=== PATIENT | female | born 1975 | race Hispanic/Latino ===

== ENCOUNTER 2018-11-15 05:51 | Emergency (ER) | payer SELFPAY ==
[2018-11-15] MEDS ORDERED: NA CHLORIDE 0.9% 1,000 ML ONE (06:35)
[2018-11-15 06:48] LABS: Absolute Lymphocytes (CBC) 1.5 K/uL (0.7-4.9); Absolute Monocytes 0.4 K/uL (0.1-1.3); Absolute Neutrophil 4.8 K/uL (1.8-8.0); Basophils % 0.5 % (0-1.3); Eosinophils % 1.8 % (0-4.4); Hematocrit 38.4 % (36.0-45.0); Lymphocytes % 21.8 % (15.3-44.8); MPV 8.7 fL (7.6-11.3); Monocytes % 6.3 % (3.3-12.3); RBC Red Blood Cell Count 4.86 M/uL (3.86-4.86)
[2018-11-15] MEDS ORDERED: KETOROLAC 30 MG/ML INJ ONE (06:56)
[2018-11-15 06:57] LABS: Urine Bacteria 20-50 /HPF (<20); Urine Culture Reflex Order REFLEXED; Urine RBC 20-50 /HPF (NONE SEEN)
[2018-11-15 07:01] LABS: ALT/SGPT 16 U/L (12-78); AST/SGOT 10 U/L (15-37); Albumin 3.5 g/dL (3.4-5.0); Alkaline Phosphatase 59 U/L (45-117); BUN Blood Urea Nitrogen 13 mg/dL (7-18); Bicarbonate 24 mmol/L (21-32); Bilirubin Direct < 0.1 mg/dL (0-0.2); Bilirubin Total 0.3 mg/dL (0.2-1.0); Glucose Level 109 mg/dL (74-106); Lipase 167 U/L (73-393); Potassium 3.7 mmol/L (3.5-5.1); Protein, Total 7.4 g/dL (6.4-8.2); Sodium Level 139 mmol/L (136-145)
--- NOTE | 2018-11-15 07:21 | RAD REPORT ---
EXAM DESCRIPTION: CT - Stone Protocol - 11/15/2018 7:06 am CLINICAL HISTORY: Abdominal pain. Hematuria COMPARISON: None. TECHNIQUE: Computed axial tomography of the abdomen pelvis was obtained without oral or IV contrast. Lack of IV and oral contrast limits evaluation of solid organs, bowel, and vessels. Coronal reformat ruth ann images were obtained and reviewed. All CT scans are performed using dose optimization technique as appropriate and may include automated exposure control or mA/KV adjustment according to patient size. FINDINGS: A renal calculus is not seen. Mild left hydronephrosis. 3 millimeter calculus left uretera l vesicle junction The liver, spleen, pancreas and adrenals appear grossly normal There is no evidence of diverticulitis. The appendix appears normal Small umbilical hernia. 25 millimeter right ovarian cyst without significant free fluid Borderline gallbladder distention IMPRESSION: 3 millimeter calculus left ureterovesical junction with mild left hydronephrosis
[2018-11-15] MEDS ORDERED: TAMSULOSIN 0.4 MG SR CAP ONE (07:41)
[2018-11-15] MEDS ORDERED: CEFTRIAXONE/SWI 1gm 1 GM/10 ML SYR ONE (07:42)
[2018-11-15] MEDS ORDERED: MAGNESIUM SULFATE 1 gm IVPB 1 GM/100 ML BAG IV ONE (07:42)
--- NOTE | 2018-11-15 07:48 | ER ---
Nurse's Notes [facility] Name: Josie Lewis Age: 43 yrs Sex: Female : 1975 Arrival Date: 11/15/2018 Time: 05:52 Bed 13 Private MD: Diagnosis: Calculus of ureter-Left Presentation: 11/15 05:53 Presenting complaint: Patient states: I have not been able to urinate or have a bowel jb4 movement since yesterday. and when I try to urinate only a little comes out and has blood in it. I am having lower abdominal pain that radiates to my lower back. Transition of care: patient was not received from another setting of care. Onset of symptoms was November 14, 2018. Risk Assessment: Do you want to hurt yourself or someone else? Patient reports no desire to harm self or others. Initial Sepsis Screen: Does the patient meet any 2 criteria? No. Patient's initial sepsis screen is negative. Does the patient have a suspected source of infection? No. Patient's initial sepsis screen is negative. 05:53 Method Of Arrival: Ambulatory jb4 05:53 Acuity: STONEY 3 jb4 05:53 Care prior to arrival: None. jb4 Triage Assessment: 05:53 General: Appears in no apparent distress. uncomfortable, Behavior is calm, cooperative, jb4 appropriate for age. Pain: Complains of pain in left lower quadrant Pain radiates to left low back Pain currently is 9 out of 10 on a pain scale. Quality of pain is described as "It's just a constant pain.". EENT: Neuro: Level of Consciousness is awake, alert, obeys commands, Oriented to person, place, time, situation. Cardiovascular: Patient's skin is warm and dry. Respiratory: Airway is patent Respiratory effort is even, unlabored, Respiratory pattern is regular, symmetrical. GI: Abdomen is non-distended, obese, Bowel sounds present X 4 quads. Abd is soft X 4 quads Abd is non tender in right upper quadrant and right lower quadrant Abdomen is tender to palpation in left upper quadrant and left lower quadrant. : Reports inability to void, pain in left lower quadrant(s) in lower back with urination, urgency, urinary frequency. Derm: Skin is intact, Skin is pink, warm \\T\\ dry. Musculoskeletal: Circulation, motion, and sensation intact. 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 - Social history:: Smoking status: Patient/guardian denies using tobacco, Patient/guardian denies using alcohol. - Ebola Screening: : No symptoms or risks identified at this time. Screenin:53 Abuse screen: Denies threats or abuse. Nutritional screening: No deficits noted. jb4 Tuberculosis screening: No symptoms or risk factors identified. Fall Risk None identified. Assessment: 05:53 General: see triage assessment.. jb4 07:14 General: Appears in no apparent distress. comfortable, Behavior is calm, cooperative. em Pain: Complains of pain in left lower quadrant Pain radiates to left low back. Neuro: Level of Consciousness is awake, alert, obeys commands, Oriented to person, place, time, situation. Cardiovascular: Patient's skin is warm and dry. Respiratory: Airway is patent Respiratory effort is even, unlabored, Respiratory pattern is regular, symmetrical. : Reports burning with urination. Derm: Skin is intact, is healthy with good turgor, Skin is pink, warm \\T\\ dry. Musculoskeletal: Range of motion: intact in all extremities. 08:00 Reassessment: Patient appears in no apparent distress at this time. Patient and/or em family updated on plan of care and expected duration. Pain level reassessed. Patient is alert, oriented x 3, equal unlabored respirations, skin warm/dry/pink. pending completion of IV magnesium. 08:50 Reassessment: Patient and/or family updated on plan of care and expected duration. Pain em level reassessed. Patient is alert, oriented x 3, equal unlabored respirations, skin warm/dry/pink. pt request something for pain, rates 4/10, provider notified, new medication orders received Patient denies pain at this time. Patient states feeling better. Vital Signs: 05:53 BP 143 / 68; Pulse 74; Resp 16; Temp 98.4(O); Pulse Ox 100% on R/A; Weight 72.57 kg jb4 (R); Height 5 ft. 6 in. (167.64 cm) (R); Pain 9/10; 07:14 BP 141 / 82; Pulse 59; Resp 16; Pulse Ox 99% on R/A; Pain 4/10; em 08:00 BP 121 / 72; Pulse 61; Resp 18; Pulse Ox 99% on R/A; Pain 0/10; em 05:53 Body Mass Index 25.82 (72.57 kg, 167.64 cm) jb4 ED Course: 05:52 Patient arrived in ED. al2 05:53 Arm band placed on left wrist. jb4 05:53 Patient has correct armband on for positive identification. Placed in gown. Bed in low jb4 position. Call light in reach. Side rails up X 1. Pulse ox on. NIBP on. 06:09 Noe Benedict, RN is Primary Nurse. jb4 06:11 Triage completed. jb4 06:19 Power Slater PA is PHCP. cp 06:19 Jacky Dang MD is Attending Physician. cp 07:[address] via wheelchair. kw1 07:06 CT Stone Protocol In Process Unspecified. EDMS 07:46 Pat Walker MD is Referral Physician. cp 09:01 No provider procedures requiring assistance completed. IV discontinued, intact, em bleeding controlled, No redness/swelling at site. Pressure dressing applied. 09:05 Primary Nurse role handed off by Noe Benedict, RN em Administered Medications: 06:30 Drug: NS 0.9% 1000 ml Route: IV; Rate: 1 bolus; Site: right antecubital; jb4 09:07 Follow up: IV Status: Completed infusion; IV Intake: 1000ml em 06:49 Drug: TORadol 30 mg Route: IVP; Site: right antecubital; jb4 07:29 Follow up: Response: No adverse reaction; Pain is decreased em 07:50 Drug: Magnesium Sulfate 1 grams Route: IVPB; Infused Over: 1 hrs; Site: right em antecubital; 09:06 Follow up: IV Status: Completed infusion em 07:50 Drug: Flomax 0.4 mg Route: PO; em 09:06 Follow up: Response: No adverse reaction em 07:51 Drug: Rocephin 1 grams Route: IV; Rate: bolus; Site: right antecubital; la1 : Follow up: Response: No adverse reaction; IV Status: Completed infusion; IV Intake: 10mlem : Drug: [place] 5 mg-325 mg 1 tabs Route: PO; em : Follow up: Response: Medication administered at discharge. em Intake: : IV: 10ml; Total: 10ml. em : IV: 1000ml; Total: 1010ml. em Outcome: 07:47 Discharge ordered by MD. cp : Discharged to home ambulatory, with family. em : Condition: good 09:02 Discharge instructions given to patient, family, Instructed on discharge instructions, follow up and referral plans. no drinking with medication, no driving heavy equipment, medication usage, Demonstrated understanding of instructions, follow-up care, medications, Prescriptions given X 4. 09:04 Patient left the ED. em 09:07 Patient left the ED. em Signatures: Dispatcher [employer] EDNY Colton Lynne, RUBBER GOODS SUPERVISOR RUBBER GOODS SUPERVISOR em Alexei Yun RN RN la1 Power Slater PA PA cp Bryson, James, RN RN jb4 Leann Dill1 [place] Lynn
--- NOTE | 2018-11-15 07:48 | EDPHYS ---
Physician Documentation [facility] Name: Josie Lewis Age: 43 yrs Sex: Female : 1975 Arrival Date: 11/15/2018 Time: 05:52 Bed 13 Private MD: ED Physician Jacky Dang HPI: 11/15 06:25 This 43 yrs old Female presents to ER via Ambulatory with complaints of Abdominal Pain, cp Back Pain. 06:25 The patient presents with abdominal pain in the left lower quadrant. The symptoms cp radiate to left back. 06:25 Onset: The symptoms/episode began/occurred yesterday. Associated signs and symptoms: cp Pertinent positives: constipation, diarrhea, hematuria, Pertinent negatives: anorexia, blood in stools, diarrhea, fever, headache, vaginal discharge, vomiting. 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 - Social history:: Smoking status: Patient/guardian denies using tobacco, Patient/guardian denies using alcohol. - Ebola Screening: : No symptoms or risks identified at this time. ROS: 06:30 Constitutional: Negative for body aches, chills, fever, poor PO intake. cp 06:30 Eyes: Negative for injury, pain, redness, and discharge. cp 06:30 Cardiovascular: Negative for chest pain, edema, palpitations. cp 06:30 Neck: Negative for pain with movement, pain at rest, stiffness. cp 06:30 Respiratory: Negative for cough, shortness of breath, wheezing. 06:30 Abdomen/GI: Positive for abdominal pain, nausea, Negative for vomiting, diarrhea, constipation, anorexia, black/tarry stool, rectal bleeding. 06:30 Back: Positive for radiated pain. 06:30 : Positive for urinary frequency, small amounts, Negative for bladder incontinence, vaginal bleeding, vaginal discharge. 06:30 Skin: Negative for cellulitis, rash. 06:30 Neuro: Negative for altered mental status, headache, weakness. 06:30 All other systems are negative. Exam: 06:35 Constitutional: The patient appears in no acute distress, alert, awake, cp non-diaphoretic, non-toxic, well developed, well nourished. 06:35 Head/Face: Normocephalic, atraumatic. cp 06:35 Eyes: Periorbital structures: appear normal, Pupils: equal, round, and reactive to cp light and accomodation, Extraocular movements: intact throughout, Conjunctiva: normal, no exudate, no injection, Sclera: no appreciated abnormality, Lids and lashes: appear normal, bilaterally. 06:35 ENT: External ear(s): are unremarkable, Nose: is normal, Mouth: Lips: moist, Oral mucosa: pink and intact, moist, Posterior pharynx: is normal, airway is patent, no erythema, no exudate, Voice: is normal. 06:35 Neck: ROM/movement: is normal, is supple, without pain, no range of motions limitations, no nuchal rigidity. 06:35 Chest/axilla: Inspection: normal, Palpation: is normal, no crepitus, no tenderness. 06:35 Cardiovascular: Rate: normal, Rhythm: regular, Edema: is not appreciated, JVD: is not appreciated. 06:35 Respiratory: the patient does not display signs of respiratory distress, Respirations: normal, no use of accessory muscles, no retractions, no splinting, no tachypnea, labored breathing, is not present, Breath sounds: are clear throughout, no decreased breath sounds, no stridor, no wheezing. 06:35 Abdomen/GI: Inspection: abdomen appears normal, Bowel sounds: active, all quadrants, Palpation: soft, in all quadrants, moderate abdominal tenderness, in the left lower quadrant, rebound tenderness, is not appreciated, voluntary guarding, is not appreciated, involuntary guarding, is not appreciated. 06:35 Back: CVA tenderness, is absent. 06:35 Skin: cellulitis, is not appreciated, no rash present. Vital Signs: 05:53 BP 143 / 68; Pulse 74; Resp 16; Temp 98.4(O); Pulse Ox 100% on R/A; Weight 72.57 kg jb4 (R); Height 5 ft. 6 in. (167.64 cm) (R); Pain 9/10; 07:14 BP 141 / 82; Pulse 59; Resp 16; Pulse Ox 99% on R/A; Pain 4/10; em 08:00 BP 121 / 72; Pulse 61; Resp 18; Pulse Ox 99% on R/A; Pain 0/10; em 05:53 Body Mass Index 25.82 (72.57 kg, 167.64 cm) jb4 MDM: 06:20 Patient medically screened. cp 07:00 Differential diagnosis: appendicitis, bowel obstruction, cholecystitis, Cholelithiasis, cp diverticulitis, gastritis, pancreatitis, Pyelonephritis, Ureterolithiasis, urinary tract infection. 07:46 Data reviewed: vital signs, nurses notes, lab test result(s), radiologic studies, CT cp scan. 07:46 Counseling: I had a detailed discussion with the patient and/or guardian regarding: the cp historical points, exam findings, and any diagnostic results supporting the discharge/admit diagnosis, lab results, radiology results, to return to the emergency department if symptoms worsen or persist or if there are any questions or concerns that arise at home. Response to treatment: the patient's symptoms have markedly improved after treatment, VSS. Pain markedly improved. Will discharge to home for continued monitoring. 11/15 06:20 Order name: Basic Metabolic Panel; Complete Time: 07:20 11/15 07:20 Interpretation: Normal except: CL 108; GLUC 109. 11/15 06:20 Order name: CBC with Diff; Complete Time: 07:20 11/15 07:20 Interpretation: Normal except: MCV 79.0; MCH 26.0; RDW 15.5. 11/15 06:20 Order name: Creatinine for Radiology; Complete Time: 07:20 11/15 06:20 Order name: Hepatic Function; Complete Time: 07:20 11/15 06:20 Order name: Lipase; Complete Time: 07:20 11/15 06:20 Order name: Urine Microscopic Only; Complete Time: 07:20 11/15 07:20 Interpretation: Normal except: URBC 20-50; UBACT 20-50; SQEPI 5-10. 11/15 06:45 Order name: CT Stone Protocol; Complete Time: 07:27 11/15 06:58 Order name: Urine Culture EDTN 11/15 06:59 Order name: Urine Dipstick--Ancillary (enter results) 11/15 06:59 Order name: Urine --Ancillary (enter results) eb 11/15 06:20 Order name: IV Saline Lock; Complete Time: 06:44 cp 11/15 06:20 Order name: Labs collected and sent; Complete Time: 06:44 cp 11/15 06:20 Order name: Urine Dipstick-Ancillary (obtain specimen); Complete Time: 06:44 cp 11/15 06:20 Order name: Urine Test (obtain specimen); Complete Time: 06:44 cp 11/15 07:31 Order name: PO challenge; Complete Time: 07:50 cp Administered Medications: 06:30 Drug: NS 0.9% 1000 ml Route: IV; Rate: 1 bolus; Site: right antecubital; jb4 09:07 Follow up: IV Status: Completed infusion; IV Intake: 1000ml em 06:49 Drug: TORadol 30 mg Route: IVP; Site: right antecubital; jb4 07:29 Follow up: Response: No adverse reaction; Pain is decreased em 07:50 Drug: Magnesium Sulfate 1 grams Route: IVPB; Infused Over: 1 hrs; Site: right em antecubital; 09:06 Follow up: IV Status: Completed infusion em 07:50 Drug: Flomax 0.4 mg Route: PO; em 09:06 Follow up: Response: No adverse reaction em 07:51 Drug: Rocephin 1 grams Route: IV; Rate: bolus; Site: right antecubital; la1 09:06 Follow up: Response: No adverse reaction; IV Status: Completed infusion; IV Intake: 10mlem 09:06 Drug: [place] 5 mg-325 mg 1 tabs Route: PO; em 09:06 Follow up: Response: Medication administered at discharge. em Disposition: 11/15/18 07:47 Discharged to Home. Impression: Calculus of ureter - Left. - Condition is Stable. - Discharge Instructions: Kidney Stones, Renal Colic. - Prescriptions for Tylenol- Codeine #3 300-30 mg Oral Tablet - take 2 tablets by ORAL route every 6 hours As needed; 20 tablet. Zofran 4 mg Oral Tablet - take 1 tablet by ORAL route every 12 hours As needed; 20 tablet. Flomax 0.4 mg Oral Capsule, Sust. Release 24 hr - take 1 capsule by ORAL route once daily 1/2 hour following the same meal each day; 5 capsule. Cipro 500 mg Oral Tablet - take 1 tablet by ORAL route every 12 hours for 7 days; 14 tablet. - Medication Reconciliation Form, Thank You Letter, Antibiotic Education, Prescription Opioid Use form. - Follow up: Pat Walker MD; When: 1 - 2 days; Reason: symptoms continue. - Problem is new. - Symptoms have improved. Signatures: Dispatcher [employer] EDMS Maged, Col[place], NEEDLE PROCESS FELT GOODS SUPERVISOR NEEDLE PROCESS FELT GOODS SUPERVISOR em Alexei Ynu RN RN la1 Power Slater PA PA Noe Li, RN RN jb4 Corrections: (The following items were deleted from the chart) 07:41 06:25 Associated signs and symptoms: Pertinent positives: dysuria, Pertinent negatives: cp constipation, diarrhea, fever, vaginal discharge, vomiting, cp 09:04 07:47 11/15/2018 07:47 Discharged to Home. Impression: Calculus of ureter - Left. em Condition is Stable. Forms are Medication Reconciliation Form, Thank You Letter, Antibiotic Education, Prescription Opioid Use. Follow up: Pat Walker; When: 1 - 2 days; Reason: symptoms continue. Problem is new. Symptoms have improved. cp 09:07 09:04 11/15/2018 07:47 Discharged to Home. Impression: Calculus of ureter - Left. em Condition is Stable. Discharge Instructions: Kidney Stones, Renal Colic. Prescriptions for Tylenol-Codeine #3 300-30 mg Oral Tablet - take 2 tablets by ORAL route every 6 hours As needed; 20 tablet, Zofran 4 mg Oral Tablet - take 1 tablet by ORAL route every 12 hours As needed; 20 tablet, Flomax 0.4 mg Oral Capsule, Sust. Release 24 hr - take 1 capsule by ORAL route once daily 1/2 hour following the same meal each day; 5 capsule, Cipro 500 mg Oral Tablet - take 1 tablet by ORAL route every 12 hours for 7 days; 14 tablet. and Forms are Medication Reconciliation Form, Thank You Letter, Antibiotic Education, Prescription Opioid Use. Follow up: Pat Walker; When: 1 - 2 days; Reason: symptoms continue. Problem is new. Symptoms have improved. em
[2018-11-15] MEDS ORDERED: HYDROCODONE/APAP 5/325 MG TAB ONE (09:02)
[2018-11-15 09:06] LABS: Urine Blood 2+ (NEG); Urine Glucose NEGATIVE (NEG); Urine Protein NEGATIVE (NEG); Urine pH 5.5 (5.0-7.0)
== END 2018-11-15 09:07 | disposition home or self-care (01) ==
LOC: ER 05:51
DX: N20.1 Calculus of ureter (principal)
CPT/HCPCS: 36415; 74176; 76377; 80048; 80076; 81003; 81015; 81025; 83690; 85025; 87086; 87088; 96361; 96365; 96368; 96375; 99284; J0696; J3475; J7030

== ENCOUNTER 2019-07-21 12:11 | Emergency (ER) | payer SELFPAY ==
[2019-07-21] MEDS ORDERED: ASPIRIN 81 MG CHEWABLE TABLET ONE (12:37)
[2019-07-21] MEDS ORDERED: NITROGLYCERIN 0.4 MG/TAB SL ONE (12:37)
[2019-07-21 12:55] LABS: Absolute Lymphocytes (CBC) 1.7 K/uL (0.7-4.9); Basophils % 0.3 % (0-1.3); Hematocrit 34.7 % (36.0-45.0); Lymphocytes % 27.1 % (15.3-44.8); MPV 8.7 fL (7.6-11.3); RBC Red Blood Cell Count 4.69 M/uL (3.86-4.86)
[2019-07-21 12:57] LABS: Protime INR 1.06
--- NOTE | 2019-07-21 12:59 | RAD REPORT ---
EXAM DESCRIPTION: Kelsi Single View07/21/2019 12:50 pm CLINICAL HISTORY: Chest pain COMPARISON: 2016 FINDINGS: The lungs appear clear of acute infiltrate. The heart is upper limits normal size IMPRESSION: No acute abnormalities displayed
[2019-07-21 13:18] LABS: ALT/SGPT 14 U/L (12-78); AST/SGOT 11 U/L (15-37); Albumin 3.4 g/dL (3.4-5.0); Alkaline Phosphatase 62 U/L (45-117); BUN Blood Urea Nitrogen 9 mg/dL (7-18); Bicarbonate 25 mmol/L (21-32); Bilirubin Direct < 0.1 mg/dL (0-0.2); Bilirubin Total 0.3 mg/dL (0.2-1.0); Glucose Level 97 mg/dL (74-106); NT PRO-BNP 55 pg/mL (<125); Potassium 3.5 mmol/L (3.5-5.1); Protein, Total 7.1 g/dL (6.4-8.2); Sodium Level 140 mmol/L (136-145); Troponin (Emerg Dept Use Only) < 0.02 ng/mL (0.0-0.045)
[2019-07-21] MEDS ORDERED: MECLIZINE HCL 12.5 MG TAB ONE (13:50)
--- NOTE | 2019-07-21 14:27 | RAD REPORT ---
EXAM DESCRIPTION: CT - Head Brain Wo Cont - 07/21/2019 2:20 pm CLINICAL HISTORY: DIZZINESS Headache, drowsiness COMPARISON: No comparisons TECHNIQUE: All CT scans are performed using dose optimization technique as appropriate and may inclu de automated exposure control or mA/KV adjustment according to patient size. FINDINGS: No intracranial hemorrhage, hydrocephalus or extra-axial fluid collection.No areas of brai n edema or evidence of midline shift. The paranasal sinuses and mastoids are clear. The calvarium is intact. IMPRESSION: No acute intracranial abnormality.
--- NOTE | 2019-07-21 14:40 | ER ---
Nurse's Notes [facility] Name: Josie Nugent Age: 44 yrs Sex: Female : 1975 Arrival Date: 07/21/2019 Time: 12:13 Bed 25 Private MD: Diagnosis: Chest pain, unspecified;Dizziness and giddiness Presentation: 07/21 12:14 Presenting complaint: EMS states: pt is American speaking only and all I got is she is ca1 having chest pain on the left side that goes to the L arm which started last night. BP 173/105, HR 120. Pt also reports she is under a lot of stress. Transition of care: patient was not received from another setting of care. Onset of symptoms was July 21, 2019. Risk Assessment: Do you want to hurt yourself or someone else? Patient reports no desire to harm self or others. Initial Sepsis Screen: Does the patient meet any 2 criteria? No. Patient's initial sepsis screen is negative. Does the patient have a suspected source of infection? No. Patient's initial sepsis screen is negative. Care prior to arrival: IV initiated. 20 GA, in the right antecubital area. 12:14 Method Of Arrival: EMS: [facility] ca1 12:14 Acuity: STONEY 3 ca1 Triage Assessment: 12:19 General: Appears in no apparent distress. comfortable, Behavior is calm, cooperative, ca1 appropriate for age. Pain: Complains of pain in chest Pain radiates to left arm Pain currently is 8 out of 10 on a pain scale. Quality of pain is described as sharp, Pain began last night. Cardiovascular: Heart tones S1 S2 present Capillary refill < 3 seconds Patient's skin is warm and dry. Pulses are all present. Rhythm is sinus rhythm. 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 - Social history:: Smoking status: Patient/guardian denies using tobacco. - Ebola Screening: : Patient negative for fever greater than or equal to 101.5 degrees Fahrenheit, and additional compatible Ebola Virus Disease symptoms Patient denies exposure to infectious person Patient denies travel to an Ebola-affected area in the 21 days before illness onset No symptoms or risks identified at this time. Screenin:22 Abuse screen: Denies threats or abuse. Denies injuries from another. Nutritional ca1 screening: No deficits noted. Tuberculosis screening: No symptoms or risk factors identified. Fall Risk IV access (20 points). Assessment: 12:22 General: Appears in no apparent distress. comfortable, Behavior is calm, cooperative, ca1 appropriate for age. Pain: Complains of pain in chest Pain radiates to left arm Pain currently is 8 out of 10 on a pain scale. Quality of pain is described as sharp, Pain began last night Is intermittent. Neuro: Level of Consciousness is awake, alert, obeys commands, Oriented to person, place, time, situation, Reports dizziness. Cardiovascular: Heart tones S1 S2 present Capillary refill < 3 seconds Patient's skin is warm and dry. Pulses are all present. Rhythm is sinus rhythm. Respiratory: Airway is patent Respiratory effort is even, unlabored, Respiratory pattern is regular, symmetrical, Breath sounds are clear bilaterally. GI: Abdomen is flat, non-distended, Bowel sounds present X 4 quads. Abd is soft and non tender X 4 quads. Reports nausea. : No deficits noted. No signs and/or symptoms were reported regarding the genitourinary system. EENT: No deficits noted. No signs and/or symptoms were reported regarding the EENT system. Derm: Skin is intact, is healthy with good turgor, Skin is pink, warm \T\ dry. Musculoskeletal: Circulation, motion, and sensation intact. Capillary refill < 3 seconds, Range of motion: intact in all extremities. 13:24 Reassessment: Patient appears in no apparent distress at this time. Patient and/or ca1 family updated on plan of care and expected duration. Pain level reassessed. Patient is alert, oriented x 3, equal unlabored respirations, skin warm/dry/pink. 14:50 Reassessment: Patient appears in no apparent distress at this time. Patient is alert, ca1 oriented x 3, equal unlabored respirations, skin warm/dry/pink. Patient states feeling better. Vital Signs: 12:19 BP 150 / 89; Pulse 76; Resp 14 S; Temp 98.6(O); Pulse Ox 100% on R/A; Weight 80.74 kg ca1 (R); Height 5 ft. 2 in. (157.48 cm) (R); Pain 8/10; 13:04 BP 126 / 73; Pulse 71; Resp 17; Pulse Ox 100% on R/A; tw2 13:24 BP 111 / 72; Pulse 66; Resp 16 S; Pulse Ox 100% on R/A; ca1 14:50 BP 122 / 88; Pulse 69; Resp 18 S; Pulse Ox 100% on R/A; ca1 12:19 Body Mass Index 32.56 (80.74 kg, 157.48 cm) ca1 ED Course: 12:13 Patient arrived in ED. bd 12:14 Sommer Kay, JAEL is Primary Nurse. ca1 12:18 Triage completed. ca1 12:19 Arm band placed on right wrist. EKG completed in triage. Results shown to MD. ca1 12:22 Patient has correct armband on for positive identification. Placed in gown. Bed in low ca1 position. Call light in reach. Side rails up X 1. environmental monitoring specialist on. Pulse ox on. NIBP on. Warm blanket given. 12:22 No provider procedures requiring assistance completed. Maintain EMS IV. Dressing ca1 intact. Good blood return noted. Site clean \T\ dry. Gauge \T\ site: G20 RAC. Patient maintains SpO2 saturation greater than 95% on room air. 12:24 Isaac Calixto PA is PHCP. jr8 12:24 Jackson Mcmahan MD is Attending Physician. jr8 12:27 EKG done, by environmental services floor tech. reviewed by Jackson Mcmahan MD. sm3 12:46 Initial lab(s) drawn, by ED staff, sent to lab. jp3 12:48 X-ray completed. Portable x-ray completed in exam room. Patient tolerated procedure jb2 well. 12:50 XRAY Chest (1 view) In Process Unspecified. EDMS 14:25 CT Head Brain wo Cont In Process Unspecified. EDMS 14:38 Shiraz Her MD is Referral Physician. jr8 14:38 Marco Antonio Alvarado MD is Referral Physician. jr8 14:51 IV discontinued, intact, bleeding controlled, No redness/swelling at site. Pressure ca1 dressing applied. Administered Medications: 12:41 Drug: Aspirin Chewable Tablet 324 mg Route: PO; ca1 13:24 Follow up: Response: No adverse reaction; Pain is decreased ca1 12:44 Drug: Nitroglycerin 0.4 mg Route: Sublingual; ca1 13:24 Follow up: Response: No adverse reaction; Pain is decreased ca1 13:51 Drug: Meclizine 25 mg Route: PO; ca1 Outcome: 14:38 Discharge ordered by MD. peng 14:51 Discharged to home ambulatory, with family. ca1 14:51 Condition: stable 14:51 Discharge instructions given to patient, family, Instructed on discharge instructions, follow up and referral plans. medication usage, Demonstrated understanding of instructions, follow-up care, medications, Prescriptions given X 2. 14:51 Patient left the ED. ca1 Signatures: Dispatcher [employer] EDMS Jacqueline Doshi Jesse jb2 Roszak, Josh, PA PA jr8 Domenica Garcia, RN RN tw2 Britta Pastrana 3 Zain Christopher jp3 Sommer Kay RN RN ca1
--- NOTE | 2019-07-21 14:40 | EDPHYS ---
Physician Documentation [facility] Name: Josie Nugent Age: 44 yrs Sex: Female : 1975 Arrival Date: 07/21/2019 Time: 12:13 Bed 25 Private MD: ED Physician Jackson Mcmahan HPI: 07/21 13:29 This 44 yrs old Female presents to ER via EMS with complaints of Chest Pain > jr8 28 y/o. 13:29 The patient or guardian reports chest pain that is located primarily in the substernal jr8 area. Onset: acutely, 3 day(s) ago. The pain radiates to the left arm. Associated signs and symptoms: Pertinent positives: dizziness, lightheadedness. The chest pain is described as a heaviness, a pressure. Duration: The patient or guardian reports multiple episodes, that are intermittent, that wax and wane. Modifying factors: The symptoms are alleviated by nothing. the symptoms are aggravated by emotionally stressful situations. Severity of pain: At its worst the pain was moderate in the emergency department the pain is unchanged. The patient has not experienced similar symptoms in the past. The patient has not recently seen a physician. Family through translation stated that patient has been under a lot more stress this week because her sister had . Started to have chest tightness that was intermittent and will not go away. Began 3 days ago . 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 - Social history:: Smoking status: Patient/guardian denies using tobacco. - Ebola Screening: : Patient negative for fever greater than or equal to 101.5 degrees Fahrenheit, and additional compatible Ebola Virus Disease symptoms Patient denies exposure to infectious person Patient denies travel to an Ebola-affected area in the 21 days before illness onset No symptoms or risks identified at this time. ROS: 13:29 Eyes: Negative for injury, pain, redness, and discharge, ENT: Negative for injury, jr8 pain, and discharge, Neck: Negative for injury, pain, and swelling, Respiratory: Negative for shortness of breath, cough, wheezing, and pleuritic chest pain, Abdomen/GI: Negative for abdominal pain, nausea, vomiting, diarrhea, and constipation, Back: Negative for injury and pain, MS/Extremity: Negative for injury and deformity, Skin: Negative for injury, rash, and discoloration. 13:29 Cardiovascular: Positive for chest pain, Negative for edema, orthopnea, palpitations, paroxysmal nocturnal dyspnea. 13:29 Neuro: Positive for dizziness, Negative for altered mental status, gait disturbance, headache, hearing loss, loss of consciousness, numbness, seizure activity, speech changes, syncope, near syncope, tingling, tinnitus, tremor, visual changes, weakness. Exam: 13:32 Eyes: Pupils equal round and reactive to light, extra-ocular motions intact. Lids and jr8 lashes normal. Conjunctiva and sclera are non-icteric and not injected. Cornea within normal limits. Periorbital areas with no swelling, redness, or edema. ENT: Nares patent. No nasal discharge, no septal abnormalities noted. Tympanic membranes are normal and external auditory canals are clear. Oropharynx with no redness, swelling, or masses, exudates, or evidence of obstruction, uvula midline. Mucous membranes moist. Neck: Trachea midline, no thyromegaly or masses palpated, and no cervical lymphadenopathy. Supple, full range of motion without nuchal rigidity, or vertebral point tenderness. No Meningismus. Chest/axilla: Normal chest wall appearance and motion. Nontender with no deformity. No lesions are appreciated. Cardiovascular: Regular rate and rhythm with a normal S1 and S2. No gallops, murmurs, or rubs. Normal PMI, no JVD. No pulse deficits. Respiratory: Lungs have equal breath sounds bilaterally, clear to auscultation and percussion. No rales, rhonchi or wheezes noted. No increased work of breathing, no retractions or nasal flaring. Abdomen/GI: Soft, non-tender, with normal bowel sounds. No distension or tympany. No guarding or rebound. No evidence of tenderness throughout. Back: No spinal tenderness. No costovertebral tenderness. Full range of motion. Skin: Warm, dry with normal turgor. Normal color with no rashes, no lesions, and no evidence of cellulitis. MS/ Extremity: Pulses equal, no cyanosis. Neurovascular intact. Full, normal range of motion. Neuro: Awake and alert, GCS 15, oriented to person, place, time, and situation. Cranial nerves II-XII grossly intact. Motor strength 5/5 in all extremities. Sensory grossly intact. Cerebellar exam normal. Normal gait. Vital Signs: 12:19 BP 150 / 89; Pulse 76; Resp 14 S; Temp 98.6(O); Pulse Ox 100% on R/A; Weight 80.74 kg ca1 (R); Height 5 ft. 2 in. (157.48 cm) (R); Pain 8/10; 13:04 BP 126 / 73; Pulse 71; Resp 17; Pulse Ox 100% on R/A; tw2 13:24 BP 111 / 72; Pulse 66; Resp 16 S; Pulse Ox 100% on R/A; ca1 14:50 BP 122 / 88; Pulse 69; Resp 18 S; Pulse Ox 100% on R/A; ca1 12:19 Body Mass Index 32.56 (80.74 kg, 157.48 cm) ca1 MDM: 12:32 Patient medically screened. jr8 13:32 Differential diagnosis: abnormal EKG, acute myocardial infarction, anxiety, chest wall jr8 pain, cholecystitis, Cholelithiasis costochondritis, esophagitis, gastritis, gastroesophageal reflux disease (GERD), pancreatitis, peptic ulcer disease, pneumonia, pulmonary embolus, stable angina, thoracic aortic disection, unstable angina. HEART Score: History: Moderately Suspicious (1), ECG: Normal (0), Age: > 45 and < 65 years (1), Risk Factors: No Risk Factors Known (0), Troponin: < or = 1 x Normal Limit (0). The patient was given aspirin in the Emergency Department. Data reviewed: vital signs, nurses notes, lab test result(s), EKG, radiologic studies, plain films, and as a result, I will discharge patient. Data interpreted: Pulse oximetry: on room air is 100 %. Interpretation: normal. 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 13:49 ED course: Patient feeling much better. No acute findings on labs and imaging. Still danish complaining of head dizziness and nausea. Stated that this has been going on well before she started to have chest pain but feels worse currently. Explained to them that we will do a CT. If negative will go home to f/u with cardiology and neurology . 07/21 12:33 Order name: Basic Metabolic Panel; Complete Time: 13:29 [facility] 07/21 12:33 Order name: CBC with Diff; Complete Time: 13: [facility] 07/21 12:33 Order name: LFT's; Complete Time: 13:29 [facility] 07/21 12:33 Order name: Magnesium; Complete Time: 13:29 [facility] 07/21 12:33 Order name: NT PRO-BNP; Complete Time: 13: [facility] 07/21 12:33 Order name: PT-INR; Complete Time: 13: [facility] 07/21 12:33 Order name: Troponin (emerg Dept Use Only); Complete Time: 13: [facility] 07/21 12:33 Order name: XRAY Chest (1 view); Complete Time: 13: [facility] 07/21 12:33 Order name: EKG; Complete Time: 12:34 [facility] 07/21 12:33 Order name: Cardiac monitoring; Complete Time: 12:35 [facility] 07/21 13:49 Order name: CT Head Brain wo Cont; Complete Time: 14:37 [facility] 07/21 12:33 Order name: EKG - Nurse/Tech; Complete Time: 12:35 [facility] 07/21 12:33 Order name: IV Saline Lock; Complete Time: 12:35 [facility] 07/21 12:33 Order name: Labs collected and sent; Complete Time: 12:35 [facility] 07/21 12:33 Order name: O2 Per Protocol; Complete Time: 12:35 [facility] 07/21 12:33 Order name: O2 Sat Monitoring; Complete Time: 12:35 [facility] Administered Medications: 12:41 Drug: Aspirin Chewable Tablet 324 mg Route: PO; ca1 13:24 Follow up: Response: No adverse reaction; Pain is decreased ca1 12:44 Drug: Nitroglycerin 0.4 mg Route: Sublingual; ca1 13:24 Follow up: Response: No adverse reaction; Pain is decreased ca1 13:51 Drug: Meclizine 25 mg Route: PO; ca1 Disposition: 15:27 Co-signature as Attending Physician, Jackson Mcmahan MD. rn Disposition: 07/21/19 14:38 Discharged to Home. Impression: Chest pain, unspecified, Dizziness and giddiness. - Condition is Stable. - Discharge Instructions: Nonspecific Chest Pain, Dizziness. - Prescriptions for Hydroxyzine HCl 50 mg Oral Tablet - take 1 tablet by ORAL route every 8 hours As needed; 20 tablet. Meclizine 25 mg Oral Tablet - take 1 tablet by ORAL route every 8 hours As needed; 30 tablet. - Medication Reconciliation Form, Thank You Letter, Antibiotic Education, Prescription Opioid Use form. - Follow up: Shiraz Her MD; When: 1 week; Reason: Recheck today's complaints, Continuance of care, Re-evaluation by your physician. Follow up: Marco Antonio Alvarado MD; When: 1 - 2 days; Reason: Recheck today's complaints, Continuance of care, Re-evaluation by your physician. - Problem is new. - Symptoms have improved. Signatures: Dispatcher [employer] EDMS Jackson Mcmahan MD MD rn Roszak, Josh, PA PA jr8 Sommer Kay RN RN ca1 Corrections: (The following items were deleted from the chart) 14:51 14:38 07/21/2019 14:38 Discharged to Home. Impression: Chest pain, unspecified; ca1 Dizziness and giddiness. Condition is Stable. Forms are Medication Reconciliation Form, Thank You Letter, Antibiotic Education, Prescription Opioid Use. Follow up: Shiraz Her; When: 1 week; Reason: Recheck today's complaints, Continuance of care, Re-evaluation by your physician. Follow up: Marco Antonio Alvarado; When: 1 - 2 days; Reason: Recheck today's complaints, Continuance of care, Re-evaluation by your physician. Problem is new. Symptoms have improved. jr8
--- NOTE | 2019-07-21 14:51 | EKG ---
Test Date: 2019-07-21 Test Time: 12:10:25 Silica Filter Operator: NICCI MEASUREMENT RESULTS: Intervals: Rate: 71 NM: 140 QRSD: 84 QT: 394 QTc: 428 [place]: P: 33 NM: 140 QRS: -7 T: 17 INTERPRETIVE STATEMENTS: Normal sinus rhythm Normal ECG No previous ECG available for comparison Electronically Signed On 07-21-19 14:50:36 CDT by Marco Antonio Alvarado
== END 2019-07-21 14:51 | disposition home or self-care (01) ==
LOC: ER 12:11
DX: R07.9 Chest pain, unspecified (principal); R42 Dizziness and giddiness
CPT/HCPCS: 36415; 70450; 71045; 80048; 80076; 83735; 83880; 84484; 85025; 85610; 93005; 99285